=== PATIENT | male | born 1985 | race Caucasian/White ===

== ENCOUNTER 2018-06-03 10:52 | Observation (INO) | payer SELFPAY ==
--- NOTE | 2018-06-03 11:13 | C.PDOC ---
History Of Present Illness 32 year old male presents to the ED complaining of recurrent palpitations since 0900 today. Patient states he woke up with symptoms and describes palpitations as constant. He denies any associated chest pain or dizziness. He admits to drinking last night. He reports history of similar symptoms 2 - 3 years ago but states today is the first recurrence since prior time. RECUR PALPITATIONS SINCE 0900. PS AWOKE W SX. CONSTANT. DENIES ASSOC CP, DIZZY. PS WAS DRINKING LAST NIGHT. HO SIM PRIOR SX 2-3 YRS AGO BUT TODAY IS FIRST RECURRENCE SINCE. EXAM NAD LUNGS CTA B/L NO W/R/R CV IRREG REG TACHY REMAINDER NEG Time Seen by Provider: 06/03/18 11:05 History Per: Patient History/Exam Limitations: no limitations Onset/Duration Of Symptoms: Hrs (2 hrs ago ), Persistent Current Symptoms Are (Timing): Still Present Associated Symptoms: denies: Chest Pain, Dizziness Past Medical History Reviewed: Historical Data, Nursing Documentation, Vital Signs Vital Signs: Last Vital Signs Temp 98.7 F 06/03/18 11:09 Pulse 104 H 06/03/18 12:07 Resp 16 06/03/18 12:07 BP 158/103 H 06/03/18 12:07 Pulse Ox 98 06/03/18 12:19 - Medical History PMH: HTN Denies: Atrial Fibrillation Surgical History: No Surg Hx Family History: States: No Known Family Hx - Social History Hx Alcohol Use: No Hx Substance Use: No Review Of Systems Except As Marked, All Systems Reviewed And Found Negative. Cardiovascular: Positive for: Palpitations. Negative for: Chest Pain Neurological: Negative for: Dizziness Physical Exam - Physical Exam Appears: Non-toxic, No Acute Distress Skin: Normal Color, Warm, Dry Head: Atraumatic, Normacephalic Eye(s): bilateral: Normal Inspection Nose: Normal Oral Mucosa: Moist Neck: Supple Chest: Symmetrical Cardiovascular: Rhythm Irregular, Other (Tachycardic ) Respiratory: Normal Breath Sounds, No Rales, No Rhonchi, No Wheezing Neurological/Psych: Oriented x3, Normal Speech Gait: Steady ED Course And Treatment - Laboratory Results Result Diagrams: 06/03/18 11:31 06/03/18 11:31 ECG: Interpreted By Me ECG Rhythm: Atrial Fibrillation ECG Interpretation: Abnormal Rate From EC O2 Sat by Pulse Oximetry: 98 (RA) Pulse Ox Interpretation: Normal - Radiology CXR: Interpreted by Me CXR Interpretation: Yes: No Acute Disease Progress Note: EKG, Labs, and CXR ordered. Patient given Cardizem 20mg IVP and Fluids. EKG repeated, Atrial fibrillation, Rate 97. Progress - Re-Evaluation Re-evaluation Note: 06/03/18 11:15 SP CARDIZEM: AFIB @ 110 PT TOLERATED WELL 06/03/18 12:17 PERSIST AFIB, OCC >100 06/03/18 12:20 D/W DR [place] NORRIS, WILL ADMIT - Data Reviewed Data Reviewed: Lab, Diagnostic imaging, EKG, Old records - Critical Care Citical Care: Excluding Proc Time Critical Care Time: 90 minutes Disposition Counseled Patient/Family Regarding: Studies Performed, Diagnosis - Disposition Disposition: HOSPITALIZED Disposition Time: 12:22 Condition: STABLE - POA Present On Arrival: None - Clinical Impression Clinical Impression: Rapid atrial fibrillation - Scribe Statement The provider has reviewed the documentation as recorded by the Suleimanibkeara Howard All medical record entries made by the Suleimanibe were at my direction and personally dictated by me. I have reviewed the chart and agree that the record accurately reflects my personal performance of the history, physical exam, medical decision making, and the department course for this patient. I have also personally directed, reviewed, and agree with the discharge instructions and disposition. Decision To Admit - Pt Status Changed To: Hospital Disposition Of: Observation - InPatient: Physician Admission Certification: I certify that this patient requires 2 or more midnights of care for the following reason:: SEE NOTE - . Bed Request Type: Telemetry Admitting Physician: Jesus Norris Patient Diagnosis: Rapid atrial fibrillation
[2018-06-03] MEDS ORDERED: Sodium Chloride 0.9% 1,000 ML IV ONE (11:14)
[2018-06-03 11:44] LABS: BASO # 0.1 K/uL (0.0-0.2); BASO % 0.8 % (0.0-2.0); EOS # 0.1 K/uL (0.0-0.7); EOS % 1.2 % (0.0-4.0); HEMOGLOBIN 17.6 g/dL (12.0-18.0); LYMPH # 3.6 K/uL (1.0-4.3); LYMPH % 35.2 % (20.0-40.0); MEAN CELL VOLUME 88.2 fL (80.0-94.0); MEAN CORPUSCULAR HEMOGLOBIN 30.9 pg (27.0-31.0); MEAN CORPUSCULAR HGB CONC 35.1 g/dL (33.0-37.0); MEAN PLATELET VOLUME 8.4 fL (7.2-11.7); MONO # 0.7 K/uL (0.0-0.8); MONO % 7.3 % (0.0-10.0); NEUT # 5.7 K/uL (1.8-7.0); NEUT % 55.5 % (50.0-75.0); NRBC % 0.2 % (0.0-2.0); RBC 5.68 Mil/uL (4.40-5.90); RED CELL DISTRIBUTION WIDTH 14.1 % (11.5-14.5); WHITE BLOOD COUNT 10.2 K/uL (4.8-10.8)
[2018-06-03] MEDS ORDERED: Enoxaparin 40 mg Syringe SC STA (11:47)
[2018-06-03 11:49] LABS: ALB/GLOB RATIO 1.3 (1.0-2.1); ALBUMIN 4.8 g/dL (3.5-5.0); ALT/SGPT 35 U/L (21-72); AST/SGOT 37 U/L (17-59); BLOOD UREA NITROGEN 14 mg/dL (9-20); CALCIUM 8.7 mg/dl (8.6-10.4); GFR AFRICAN-AMERICAN > 60; GFR NON-AFRICAN AMERICAN > 60
[2018-06-03 11:52] LABS: PROTHROMBIN TIME 10.8 SECONDS (9.7-12.2)
--- NOTE | 2018-06-03 12:02 | RAD ---
Chest x-ray single frontal view History: Palpitations. Comparison: 10/31/2015 Findings: Mild venous congestion. Tortuous aorta. Heart size within normal limits. Impression: Mild venous congestion.
[2018-06-03] MEDS ORDERED: Enoxaparin 100 mg Syringe ONE (12:07)
--- NOTE | 2018-06-03 12:38 | CP.PCM.HP ---
<Lilly Tilley - Last Filed: 06/03/18 19:41> History of Present Illness - History of Present Illness History of Present Illness: History and Physical - Hospitalist Service CC: "I woke up with palpitations" HPI: Patient is a 32 year old male with past medical history of atrial fibrillation, HTN presented to the ED for palpitations. Patient states that when he woke up he was experiencing palpitations. Also reports feeling shortness of breath. Patient states that he was drinking "alot" last night. States that he had at least 5 glasses of whiskey which is more than he drinks normally. He states that he has had palpitations in the past, a few years ago and at that time he was diagnosed with Atrial Fibrillation. Patient follows with Dr Franz and is unsure when his last echocardiogram was. He states that he is taking two medications at home, but is unsure what the name of the medications are. He is not sure if he has ever been on a blood thinner. Reports that he generally is complaint with his medications but did not take it yesterday. Currently patient reports having a headache. Since arrival to the ED he had two episodes of NBNB vomiting. Patient is attributing the headache and vomiting to the alcohol. Denies dizziness, chest pain, visual changes, shortness of breath, abdominal pain, urinary symptoms, changes in bowel habits, numbness/tingling. 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) Medical History: Atrial fibrillation, HTN, Hx of abnormal thyroid function Surgical History: Denies Social History: Denies tobacco and drug use; drinks whisky on the weekends, last drink was yesterday; lives with his girlfriend and her two kids; works for [employer] Family History: Mother - HTN; Father - HTN; Maternal Grandmother - CVA in her 50s Present on Admission - Present on Admission Any Indicators Present on Admission: No Past Patient History - Past Medical History & Family History Past Medical History?: Yes - Past Social History Smoking Status: Never Smoked - CARDIAC Hx Atrial Fibrillation: No Hx Hypertension: Yes - MUSCULOSKELETAL/RHEUMATOLOGICAL Hx Falls: No - PSYCHIATRIC Hx Substance Use: No - SURGICAL HISTORY Hx Surgeries: No - ANESTHESIA Hx Anesthesia: No Hx Anesthesia Reactions: No Hx Malignant Hyperthermia: No Meds Allergies/Adverse Reactions: Allergies Allergy/AdvReac Type Severity Reaction Status Date / Time seafood Allergy Uncoded 10/31/15 20:54 Physical Exam - Constitutional Appears: Well, Non-toxic, No Acute Distress - Head Exam Head Exam: ATRAUMATIC, NORMAL INSPECTION, NORMOCEPHALIC - Eye Exam Eye Exam: EOMI, Normal appearance Pupil Exam: NORMAL ACCOMODATION - ENT Exam ENT Exam: Mucous Membranes Moist - Neck Exam Neck exam: Positive for: Full Rom - Respiratory Exam Respiratory Exam: Clear to Auscultation Bilateral, NORMAL BREATHING PATTERN. absent: Rales, Rhonchi, Wheezes - Cardiovascular Exam Cardiovascular Exam: Tachycardia, Irregular Rhythm, +S1, +S2 - GI/Abdominal Exam GI & Abdominal Exam: Normal Bowel Sounds, Soft. absent: Guarding, Rebound, Rigid, Tenderness - Rectal Exam Rectal Exam: Deferred - Extremities Exam Extremities exam: Positive for: normal capillary refill, normal inspection, pedal pulses present. Negative for: calf tenderness, pedal edema - Back Exam Back exam: NORMAL INSPECTION - Neurological Exam Neurological exam: Alert, CN II-XII Intact, Oriented x3 - Psychiatric Exam Psychiatric exam: Normal Affect, Normal Mood - Skin Skin Exam: Dry, Normal Color, Warm Results - Vital Signs Recent Vital Signs: Last Vital Signs Temp 98.7 F 06/03/18 11:09 Pulse 104 H 06/03/18 12:07 Resp 16 06/03/18 12:07 BP 158/103 H 06/03/18 12:07 Pulse Ox 98 06/03/18 12:23 - Labs Result Diagrams: 06/03/18 11:31 06/03/18 11:31 Labs: Laboratory Results - last 24 hr 06/03/18 06/03/18 06/03/18 11:31 11:31 11:31 WBC 10.2 RBC 5.68 Hgb 17.6 Hct 50.1 MCV 88.2 MCH 30.9 MCHC 35.1 RDW 14.1 Plt Count 259 MPV 8.4 Neut % (Auto) 55.5 Lymph % (Auto) 35.2 [place] % (Auto) 7.3 Eos % (Auto) 1.2 Baso % (Auto) 0.8 Neut # (Auto) 5.7 Lymph # (Auto) 3.6 [place] # (Auto) 0.7 Eos # (Auto) 0.1 Baso # (Auto) 0.1 PT 10.8 INR 1.0 APTT 36 H Sodium 145 Potassium 3.6 Chloride 105 Carbon Dioxide 26 Anion Gap 18 BUN 14 Creatinine 1.1 Est GFR ( Amer) > 60 Est GFR (Non-Af Amer) > 60 Random Glucose 118 H Calcium 8.7 Total Bilirubin 0.6 AST 37 ALT 35 Alkaline Phosphatase 105 Troponin I < 0.0120 Total Protein 8.6 H Albumin 4.8 Globulin 3.8 Albumin/Globulin Ratio 1.3 Assessment & Plan - Assessment and Plan (Free Text) Assessment: A/P: Patient is a 32 year old male with past medical history of atrial fibrillation, HTN who presented to the ED for palpitations and SOB that started this morning. Atrial Fibrillation with Rapid Ventricular Response -Stable, afebrile -Will monitor on telemetry x 24 hours -Patient received Cardizem 20mg IVP and Cardizem 30mg PO x 1 in the ED -Will continue Cardizem 30mg PO Q6H -Echocardiogram ordered, f/u official report -CHADsVASc score 1 for Hypertension -Will continue Lovenox 100mg SC Q12H -CXR showed mild venous congestion -EKG on arrival showed Afib with RVR 156bpm -Initial Troponin was negative, will trend CLYDE Q6H x 2 -F/U lipid panel, hga1c, TSH/Free T4, UTOX -Cardiology on consult, Dr Maya, help appreciated Hypertension -Per [facility] pharmacy, patient is on Benzapril 10mg and Norvasc 10mg daily at home -Patient recieved a 30 day supply of his medications and March and has not picked up his prescriptions since then -We will continue Cardizem 30mg Q6H PO at this time -Monitor Vitals Q4H Abnormal Thyroid Function -During previous admission, patient had abnormal thyroid studies -Patient denies any history of Thyroid disorder -Will check TSH and Free T4 Alcohol abuse/Possible alcohol withdrawal -Patient is an episodic drinker -Last drink was last night, reports drinking >5 glasses of whiskey -Alcohol level on admission was 21 -Ativan 1mg Q6H prn symptoms of alcohol withdrawal -Started on Banana bag -Zofran 4mg Q6H prn nausea, Tylenol 650mg Q6H prn headache -CIWA protocol, seizure precautions, aspiration precautions GI/DVT ppx: -No GI ppx indicated at this time -Lovenox 100mg SC Q12H Patient states that he would like to be full code and in the event he is unable to make decisions for himself, he would like his girlfriend to be his health care proxy. Her name is Lucy Morgan [phone]. Plan discussed with Dr Jesus Tilley DO PGY-2 <Jesus Chambers - Last Filed: 06/03/18 20:50> Results - Vital Signs Recent Vital Signs: Last Vital Signs Temp 98.5 F 06/03/18 15:07 Pulse 96 H 06/03/18 15:07 Resp 20 06/03/18 15:07 BP 157/102 H 06/03/18 15:07 Pulse Ox 98 06/03/18 16:22 - Labs Result Diagrams: 06/03/18 11:31 06/03/18 11:31 Labs: Laboratory Results - last 24 hr 06/03/18 06/03/18 06/03/18 11:31 11:31 11:31 WBC 10.2 RBC 5.68 Hgb 17.6 Hct 50.1 MCV 88.2 MCH 30.9 MCHC 35.1 RDW 14.1 Plt Count 259 MPV 8.4 Neut % (Auto) 55.5 Lymph % (Auto) 35.2 [place] % (Auto) 7.3 Eos % (Auto) 1.2 Baso % (Auto) 0.8 Neut # (Auto) 5.7 Lymph # (Auto) 3.6 [place] # (Auto) 0.7 Eos # (Auto) 0.1 Baso # (Auto) 0.1 PT 10.8 INR 1.0 APTT 36 H Sodium 145 Potassium 3.6 Chloride 105 Carbon Dioxide 26 Anion Gap 18 BUN 14 Creatinine 1.1 Est GFR ( Amer) > 60 Est GFR (Non-Af Amer) > 60 Random Glucose 118 H Hemoglobin A1c Calcium 8.7 Total Bilirubin 0.6 AST 37 ALT 35 Alkaline Phosphatase 105 Troponin I < 0.0120 Total Protein 8.6 H Albumin 4.8 Globulin 3.8 Albumin/Globulin Ratio 1.3 TSH 3rd Generation 7.65 H Urine Opiates Screen Urine Methadone Screen Ur Barbiturates Screen Ur Phencyclidine Scrn Ur Amphetamines Screen U Benzodiazepines Scrn U Oth Cocaine Metabols U Cannabinoids Screen Alcohol, Quantitative 21 H 06/03/18 06/03/18 12:30 12:47 WBC RBC Hgb Hct MCV MCH MCHC RDW Plt Count MPV Neut % (Auto) Lymph % (Auto) [place] % (Auto) Eos % (Auto) Baso % (Auto) Neut # (Auto) Lymph # (Auto) [place] # (Auto) Eos # (Auto) Baso # (Auto) PT INR APTT Sodium Potassium Chloride Carbon Dioxide Anion Gap BUN Creatinine Est GFR ( Amer) Est GFR (Non-Af Amer) Random Glucose Hemoglobin A1c 5.3 Calcium Total Bilirubin AST ALT Alkaline Phosphatase Troponin I Total Protein Albumin Globulin Albumin/Globulin Ratio TSH 3rd Generation Urine Opiates Screen Negative Urine Methadone Screen Negative Ur Barbiturates Screen Negative Ur Phencyclidine Scrn Negative Ur Amphetamines Screen Negative U Benzodiazepines Scrn Negative U Oth Cocaine Metabols Negative U Cannabinoids Screen Negative Alcohol, Quantitative Attending/Attestation - Attestation I have personally seen and examined this patient.: Yes I have fully participated in the care of the patient.: Yes I have reviewed all pertinent clinical information: Yes Notes (Text): 06/03/18 20:49 Patient was seen and examined shortly after resident. History, exam, assessment and plan were gone over with resident. Please note patient is also on Metoprolol 50 mg PO 2x/day Jesus Chambers D.O.
[2018-06-03] MEDS: Folic Acid 1 MG, Thiamine 100 MG, Multivitamin (MVI) 10 ML in Dextrose 5% In Water 1,00... IV SCH (14:23)
[2018-06-03 15:50] LABS: BARBITURATES, UR NEGATIVE (NEGATIVE); BENZODIAZEPINES, UR NEGATIVE (NEGATIVE); OPIATES, UR NEGATIVE (NEGATIVE); PHENCYCLIDINE, UR NEGATIVE (NEGATIVE)
[2018-06-03] MEDS: Enoxaparin 100 mg Syringe SC SCH (22:21)
--- NOTE | 2018-06-04 03:22 | CON ---
DATE: 06/03/2018 CARDIOLOGY CONSULTATION REASON FOR CONSULTATION: Paroxysmal atrial fibrillation. HISTORY OF PRESENT ILLNESS: The patient is a 32-year-old male who had EtOH abuse. He was diagnosed with atrial fibrillation some three years ago and was admitted in 10/2015. The patient was placed on Eliquis at that time and was followed in the clinic. The patient presented because of an episode of palpitation after drinking vodka and was found to be in rapid atrial fibrillation. The patient denies retrosternal chest pain. SOCIAL HISTORY: The patient is a nonsmoker. MEDICATIONS: Cardizem 30 mg every 6 hours, multivitamin including thiamin and vitamin C intravenous infusion, therapeutic subcutaneous Lovenox 100 mg twice a day, and Zofran 4 mg intravenously every 6 hours p.r.n. PAST MEDICAL HISTORY: Paroxysmal atrial fibrillation. PHYSICAL EXAMINATION: GENERAL: The patient is a young middle aged man who does not appear to be in acute distress. VITAL SIGNS: Blood pressure 158/103, heart rate 104, temperature 98.7. HEENT: Normocephalic. CHEST: Clear. HEART: S1 and S2 are regular. ABDOMEN: Soft. EXTREMITIES: No edema. No calf tenderness. LABORATORY DATA: Today's SMA-7 is within normal limit except glucose of 118. One set of troponin is negative. Liver enzymes are within normal limits. TSH level is elevated at 7.65. Today's CBC is entirely within normal limit. INR is 1, PTT is 36. Alcohol level on admission was 21. Urine drug screen is negative. Chest x-ray was unremarkable. ASSESSMENT: 1. Paroxysmal atrial fibrillation. Consider holiday heart. The patient did drink vodka and he has alcohol in his system. 2. Hypertension. RECOMMENDATIONS: Continue therapeutic subcutaneous Lovenox. Continue Cardizem 30 mg every 6 hours. Start Lopressor 60 mg twice a day. Obtain total T4 and free T4. Obtain an echocardiographic study. Gallo Maya MD
[2018-06-04 06:59] LABS: BASO # 0.1 K/uL (0.0-0.2); BASO % 0.7 % (0.0-2.0); EOS # 0.1 K/uL (0.0-0.7); EOS % 0.7 % (0.0-4.0); HEMOGLOBIN 16.9 g/dL (12.0-18.0); LYMPH # 3.9 K/uL (1.0-4.3); LYMPH % 30.1 % (20.0-40.0); MEAN CELL VOLUME 87.8 fL (80.0-94.0); MEAN CORPUSCULAR HEMOGLOBIN 30.2 pg (27.0-31.0); MEAN CORPUSCULAR HGB CONC 34.4 g/dL (33.0-37.0); MEAN PLATELET VOLUME 7.9 fL (7.2-11.7); MONO # 0.9 K/uL (0.0-0.8); MONO % 6.8 % (0.0-10.0); NEUT % 61.7 % (50.0-75.0); NRBC % 0.1 % (0.0-2.0); RBC 5.61 Mil/uL (4.40-5.90); RED CELL DISTRIBUTION WIDTH 14.2 % (11.5-14.5)
[2018-06-04 07:29] LABS: CK-MB 0.45 ng/mL (0.0-3.38)
[2018-06-04 07:39] LABS: ALB/GLOB RATIO 1.4 (1.0-2.1); ALBUMIN 4.1 g/dL (3.5-5.0); ALT/SGPT 31 U/L (21-72); AST/SGOT 32 U/L (17-59); BLOOD UREA NITROGEN 15 mg/dL (9-20); CALCIUM 8.6 mg/dl (8.6-10.4); GFR AFRICAN-AMERICAN > 60; GFR NON-AFRICAN AMERICAN > 60; HDL CHOLESTEROL 33 mg/dL (30-70); LDL CHOLESTEROL 96 mg/dL (0-129)
[2018-06-04] MEDS: Folic Acid 1 MG, Thiamine 100 MG, Multivitamin (MVI) 10 ML in Dextrose 5% In Water 1,00... IV SCH (10:12)
[2018-06-04] MEDS: Enoxaparin 100 mg Syringe SC SCH ×2 (10:12→21:12)
--- NOTE | 2018-06-04 14:29 | CP.PCM.PN ---
<Lorraine Verdin V - Last Filed: 06/04/18 15:27> Objective - Vital Signs/Intake and Output Vital Signs (last 24 hours): Temp Pulse Resp BP Pulse Ox 98.0 F 57 L 20 137/91 H 98 06/04/18 08:10 06/04/18 08:10 06/04/18 08:10 06/04/18 08:10 06/04/18 08:10 - Medications Medications: Current Medications Acetaminophen (Tylenol 325mg Tab) 650 mg PO Q6 PRN PRN Reason: Headache Last Admin: 06/03/18 13:40 Dose: 650 mg Diltiazem HCl (Cardizem) 30 mg PO Q8H [facility] Enoxaparin Sodium (Lovenox) 100 mg SC Q12 [facility] Last Admin: 06/04/18 10:12 Dose: 100 mg Folic Acid 1 mg/ Thiamine HCl 100 mg/ Multivitamins/Vitamin C 10 ml/ Dextrose 1 ,011.2 mls @ 100 mls/hr IV DAILY [facility] Last Admin: 06/04/18 10:12 Dose: 100 mls/hr Levothyroxine Sodium (Synthroid) 25 mcg PO DAILY@0630 [facility] Lorazepam (Ativan) 1 mg IVP Q6H PRN PRN Reason: Symptoms of alcohol withdrawl Metoprolol Tartrate (Lopressor) 50 mg PO BID [facility] Last Admin: 06/04/18 10:11 Dose: 50 mg Ondansetron HCl (Zofran Inj) 4 mg IVP Q6H PRN PRN Reason: Nausea/Vomiting Last Admin: 06/03/18 13:44 Dose: 4 mg - Labs Labs: 06/04/18 06:43 06/04/18 06:43 PT 10.8 SECONDS (9.7-12.2) 06/03/18 11:31 INR 1.0 06/03/18 11:31 APTT 36 SECONDS (21-34) H 06/03/18 11:31 Attending/Attestation - Attestation I have personally seen and examined this patient.: Yes I have fully participated in the care of the patient.: Yes I have reviewed all pertinent clinical information, including history, physical exam and plan: Yes Notes (Text): patient seen, examined, and case discussed with biomedical engineering director. Patient denies acute complaints.. Denies chest pain. Denies palpitations. Denies shortness of breath. Patient on telemetry noted to be bradycardic is asymptomatic. We'll lower her Cardizem from 30 mg by mouth 4 times a day 2 Cardizem 30 mg by mouth 3 times a day. Patient cardiac enzymes are negative 3. Echocardiogram has been completed awaiting official report. Per review of the note patient has not antihypertensives only has not been on any chemical anticoagulation. Pending report of echocardiogram to determine if patient will need chemical anticoagulant or needs an aspirin. We'll follow-up with cardiology for any further recommendations. Noted Patient history of clinic patient here at the hospital however his care has been with [facility]. Patient used to be on a low dose Synthroid for abnormal thyroid disorder but presently he is not. We will restart Synthroid micrograms once a day in the morning he will need to follow-up up with PMD for thyroid function tests and least 6-8 weeks. Patient noted was to have elevated triglycerides in light of morbid obesity he will need to engage in lifestyle modifications and exercise regimen to help reduce his risk overall. Assessment/Plan 1) Atrial Fibrillation with Rapid Ventricular Response Assessment/plan * Exacerbated by alcohol * Stable, afebrile * Cardiology on consult, Dr Maya, help appreciated * CHADsVASc score 1 for Hypertension * Patient received Cardizem 20mg IVP and Cardizem 30mg PO x 1 in the ED * We'll lower Cardizem 30mg PO Q 8 H. patient is noted to be bradycardic on telemetry heart rate in no 48-50 range. Patient is asymptomatic. * Lopressor 50mg PO BID * Pending-Echocardiogram ordered, f/u official report * Will continue Lovenox 100mg SC Q12H until official report of echocardiogram. * CXR showed mild venous congestion * EKG on arrival showed Afib with RVR 156bpm * Cardiac enzymes 3 negative * Lipid panel: Triglycerides elevated 355, check cholesterol 173, LDL 96, HDL 33 , hga1c: 5.3, drug screen negative, elevated alcohol admission Per [facility] pharmacy, patient is on Benzapril 10mg and Norvasc 10mg daily at home. Patient recieved a 30 day supply of his medications and March and has not picked up his prescriptions since then 2) Abnormal Thyroid Function Assessment/plan * During previous admission, patient had abnormal thyroid studies * Patient denies any history of Thyroid disorder * Elevated TSH, low free T4 * Patient used to come to the clinic associated with the hospital and use to be on Synthroid 25 g. Patient currently follows up at the [facility] but is not taking any medications. * Will restart Synthroid 25 g in the morning. 3) Alcohol abuse/Possible alcohol withdrawal Assessment/plan * Patient is an episodic drinker * Last drink was two night, reports drinking >5 glasses of whiskey * Alcohol level on admission was 21 * Ativan 1mg Q6H prn symptoms of alcohol withdrawal * Started on Banana bag will switch to thiamine 100 mg by mouth daily, multivitamin 1 tab by mouth daily, folic acid 1 mg by mouth daily * Zofran 4mg Q6H prn nausea, Tylenol 650mg Q6H prn headache * CIWA protocol, seizure precautions, aspiration precautions 4) Elevated triglycerides Low HDL Assessment/plan * Advocate for lifestyle modifications including alcohol cessation * Engage in exercise regimen in light of morbid obesity * [place]-3 fatty acid 1 tab PO BID 5) GI/DVT ppx Assessment/plan * No GI ppx indicated at this time * Lovenox 100mg SC Q12H <Astrid Mcneill Y - Last Filed: 06/04/18 21:00> Subjective - Date & Time of Evaluation Date of Evaluation: 06/04/18 Time of Evaluation: 12:08 - Subjective Subjective: PGY-1 Medicine Progress Note for hospitalist Dr. Verdin. Patient was seen and examined today at bedside in no acute distress. Nurse reports no overnight event. Patient denies any acute problems. Denies chest pain , shortness of breath, cough, wheeze, abdominal pain, nausea, vomiting, constipation, diarrhea. Objective - Vital Signs/Intake and Output Vital Signs (last 24 hours): Temp Pulse Resp BP Pulse Ox 98.0 F 57 L 20 137/91 H 98 06/04/18 08:10 06/04/18 08:10 06/04/18 08:10 06/04/18 08:10 06/04/18 08:10 - Medications Medications: Current Medications Acetaminophen (Tylenol 325mg Tab) 650 mg PO Q6 PRN PRN Reason: Headache Last Admin: 06/03/18 13:40 Dose: 650 mg Diltiazem HCl (Cardizem) 30 mg PO Q8H [facility] Enoxaparin Sodium (Lovenox) 100 mg SC Q12 [facility] Last Admin: 06/04/18 10:12 Dose: 100 mg Folic Acid 1 mg/ Thiamine HCl 100 mg/ Multivitamins/Vitamin C 10 ml/ Dextrose 1 ,011.2 mls @ 100 mls/hr IV DAILY [facility] Last Admin: 06/04/18 10:12 Dose: 100 mls/hr Levothyroxine Sodium (Synthroid) 25 mcg PO DAILY@0630 [facility] Lorazepam (Ativan) 1 mg IVP Q6H PRN PRN Reason: Symptoms of alcohol withdrawl Metoprolol Tartrate (Lopressor) 50 mg PO BID [facility] Last Admin: 06/04/18 10:11 Dose: 50 mg Ondansetron HCl (Zofran Inj) 4 mg IVP Q6H PRN PRN Reason: Nausea/Vomiting Last Admin: 06/03/18 13:44 Dose: 4 mg - Labs Labs: 06/04/18 06:43 06/04/18 06:43 PT 10.8 SECONDS (9.7-12.2) 06/03/18 11:31 INR 1.0 06/03/18 11:31 APTT 36 SECONDS (21-34) H 06/03/18 11:31 - Constitutional Appears: Well, Non-toxic, No Acute Distress - Head Exam Head Exam: ATRAUMATIC, NORMOCEPHALIC - Eye Exam Eye Exam: EOMI, Normal appearance. absent: Conjunctival injection, Nystagmus, Scleral icterus - ENT Exam ENT Exam: Mucous Membranes Moist, Normal Exam - Neck Exam Neck Exam: Full ROM, Normal Inspection. absent: Lymphadenopathy, Tenderness, Thyromegaly - Respiratory Exam Respiratory Exam: Clear to Ausculation Bilateral, NORMAL BREATHING PATTERN. absent: Accessory Muscle Use, Rales, Rhonchi, Wheezes - Cardiovascular Exam Cardiovascular Exam: REGULAR RHYTHM, +S1, +S2. absent: Murmur - GI/Abdominal Exam GI & Abdominal Exam: Soft, Normal Bowel Sounds. absent: Tenderness - Extremities Exam Extremities Exam: Full ROM, Normal Capillary Refill, Normal Inspection. absent : Joint Swelling, Pedal Edema Additional comments: IV in R arm, good flow - Neurological Exam Neurological Exam: Alert, Awake, CN II-XII Intact, Normal Gait, Oriented x3 - Psychiatric Exam Psychiatric exam: Normal Affect, Normal Mood - Skin Skin Exam: Dry, Intact, Normal Color, Warm Assessment and Plan - Assessment and Plan (Free Text) Plan: 1) Atrial Fibrillation with Rapid Ventricular Response Assessment/plan * Exacerbated by alcohol * Stable, afebrile * Lipid panel (06/04) Triglycerides elevated 355, check cholesterol 173, LDL 96, HDL 33, hga1c: 5.3, drug screen negative, elevated alcohol admission * CXR (06/03) showed mild venous congestion * Echo (06/03) done, pending report * Per [facility] pharmacy, patient is on Benzapril 10mg and Norvasc 10mg daily at home. Patient received a 30 day supply of his medications and March and has not picked up his prescriptions since then * Cardiology on consult, Dr Maya, help appreciated * Cont therapeutic sub Q Lovenox * Cont Cardizem 30mg PO q6h [Due to bradycardia,switched to TID dosing] * Start Lopressor 60mg po BID [NF. Started on 50mg po BID] * Obtain total T4 and free T4 * CHADsVASc score 1 for Hypertension * EKG on arrival showed Afib with RVR 156bpm * Patient received Cardizem 20mg IVP and Cardizem 30mg PO x 1 in the ED * Cardiac enzymes 3 negative * Will continue Lovenox 100mg SC Q12H until official report of echocardiogram. 2) Abnormal Thyroid Function Assessment/plan * During previous admission, patient had abnormal thyroid studies * Patient denies any history of Thyroid disorder * Elevated TSH, low free T4 * Patient used to come to the clinic associated with the hospital and use to be on Synthroid 25 g. Patient currently follows up at the [facility] but is not taking any medications. * Restart Synthroid 25 g in the morning. 3) Alcohol abuse/Possible alcohol withdrawal Assessment/plan * Patient is an episodic drinker * Last drink was two nights ago, reports drinking >5 glasses of whiskey * Alcohol level on admission was 21 * Ativan 1mg Q6H prn symptoms of alcohol withdrawal * Started on Banana bag will switch to thiamine 100 mg by mouth daily, multivitamin 1 tab by mouth daily, folic acid 1 mg by mouth daily * Zofran 4mg Q6H prn nausea, Tylenol 650mg Q6H prn headache * CIWA protocol, seizure precautions, aspiration precautions 4) Elevated triglycerides Low HDL Assessment/plan * Advocate for lifestyle modifications including alcohol cessation * Engage in exercise regimen in light of morbid obesity * [place]-3 fatty acid 1 tab PO BID 5) Prophylatic Measures Assessment/plan * No GI ppx indicated at this time * Lovenox 100mg SC Q12H * Heart healthy diet
[2018-06-04 14:42] LABS: CK-MB 0.35 ng/mL (0.0-3.38)
[2018-06-04] MEDS: Omega-3-Acid Ethyl Esters 1 GM Cap PO SCH (17:41)
--- NOTE | 2018-06-04 23:33 | PN ---
DATE: 06/04/2018 PHYSICAL EXAMINATION: VITAL SIGNS: Blood pressure 136/91, heart rate 54, temperature 97.9. LABORATORY DATA: Echocardiographic study was reviewed and it revealed normal left ventricular size and left ventricular systolic function. There was trace pulmonic insufficiency as well as trace tricuspid insufficiency. The left atrium was within normal limits. ASSESSMENT: 1. Paroxysmal atrial fibrillation, the patient is currently in sinus bradycardia. 2. Ethanol abuse. 3. Hypertension. 4. Hypothyroidism. RECOMMENDATIONS: Discontinue Cardizem. Continue subcutaneous Lovenox and obtain 12-lead EKG. In the meantime, continue Synthroid 25 mcg orally daily. Gallo Maya MD
[2018-06-05] MEDS ORDERED: Levothyroxine 25 MCG TAB PO SCH (06:30)
--- NOTE | 2018-06-05 07:29 | CP.PCM.PN ---
Objective - Vital Signs/Intake and Output Vital Signs (last 24 hours): Temp Pulse Resp BP Pulse Ox 98.6 F 49 L 20 144/98 H 98 06/04/18 23:20 06/05/18 02:38 06/04/18 23:20 06/04/18 23:20 06/05/18 02:38 - Medications Medications: Current Medications Acetaminophen (Tylenol 325mg Tab) 650 mg PO Q6 PRN PRN Reason: Headache Last Admin: 06/03/18 13:40 Dose: 650 mg Diltiazem HCl (Cardizem) 30 mg PO Q8H [facility] Last Admin: 06/04/18 23:38 Dose: Not Given Enoxaparin Sodium (Lovenox) 100 mg SC Q12 [facility] Last Admin: 06/04/18 21:12 Dose: 100 mg Folic Acid 1 mg/ Thiamine HCl 100 mg/ Multivitamins/Vitamin C 10 ml/ Dextrose 1 ,011.2 mls @ 100 mls/hr IV DAILY [facility] Last Admin: 06/04/18 10:12 Dose: 100 mls/hr Levothyroxine Sodium (Synthroid) 25 mcg PO DAILY@0630 [facility] Last Admin: 06/05/18 05:42 Dose: 25 mcg Lorazepam (Ativan) 1 mg IVP Q6H PRN PRN Reason: Symptoms of alcohol withdrawl Metoprolol Tartrate (Lopressor) 50 mg PO BID [facility] Last Admin: 06/04/18 17:41 Dose: 50 mg Multivitamins (Hexavitamin) 1 tab PO DAILY [facility] [id number] Ethyl Esters (Lovaza) 1 gm PO BID [facility] Last Admin: 06/04/18 17:41 Dose: 1 gm Ondansetron HCl (Zofran Inj) 4 mg IVP Q6H PRN PRN Reason: Nausea/Vomiting Last Admin: 06/03/18 13:44 Dose: 4 mg Thiamine HCl (Vitamin B1 Tab) 100 mg PO DAILY [facility] Last Admin: 06/04/18 19:47 Dose: 100 mg - Labs Labs: 06/04/18 06:43 06/04/18 06:43 PT 10.8 SECONDS (9.7-12.2) 06/03/18 11:31 INR 1.0 06/03/18 11:31 APTT 36 SECONDS (21-34) H 06/03/18 11:31
[2018-06-05 07:35] LABS: BASO % 0.4 % (0.0-2.0); EOS # 0.1 K/uL (0.0-0.7); EOS % 1.2 % (0.0-4.0); HEMOGLOBIN 15.7 g/dL (12.0-18.0); LYMPH # 3.3 K/uL (1.0-4.3); LYMPH % 33.7 % (20.0-40.0); MEAN CORPUSCULAR HEMOGLOBIN 30.8 pg (27.0-31.0); MEAN PLATELET VOLUME 8.2 fL (7.2-11.7); MONO # 0.7 K/uL (0.0-0.8); MONO % 7.2 % (0.0-10.0); NEUT # 5.6 K/uL (1.8-7.0); NEUT % 57.5 % (50.0-75.0); NRBC % 0.1 % (0.0-2.0); RBC 5.09 Mil/uL (4.40-5.90); RED CELL DISTRIBUTION WIDTH 13.9 % (11.5-14.5); WHITE BLOOD COUNT 9.8 K/uL (4.8-10.8)
[2018-06-05 09:01] LABS: ALB/GLOB RATIO 1.2 (1.0-2.1); ALBUMIN 3.7 g/dL (3.5-5.0); ALT/SGPT 30 U/L (21-72); AST/SGOT 37 U/L (17-59); BLOOD UREA NITROGEN 16 mg/dL (9-20); CALCIUM 8.6 mg/dl (8.6-10.4); GFR AFRICAN-AMERICAN > 60; GFR NON-AFRICAN AMERICAN > 60
[2018-06-05 09:14] VITALS: TEMP 97.9
[2018-06-05] MEDS ORDERED: Multiple Vitamins Tab PO SCH (10:00)
[2018-06-05] MEDS: Omega-3-Acid Ethyl Esters 1 GM Cap PO SCH (10:25)
[2018-06-05] MEDS: Enoxaparin 100 mg Syringe SC SCH (10:25)
[2018-06-05] MEDS: Folic Acid 1 MG, Thiamine 100 MG, Multivitamin (MVI) 10 ML in Dextrose 5% In Water 1,00... IV SCH (10:25)
--- NOTE | 2018-06-05 11:06 | CP.PCM.DIS ---
Provider - Provider Date of Admission: 06/03/18 12:23 Attending physician: Jesus Chambers MD Time Spent in preparation of Discharge (in minutes): 60 Diagnosis - Discharge Diagnosis (1) Paroxysmal atrial fibrillation Status: Acute Hospital Course - Lab Results Lab Results: Most Recent Lab Values WBC 9.8 K/uL (4.8-10.8) 06/05/18 07:00 RBC 5.09 Mil/uL (4.40-5.90) 06/05/18 07:00 Hgb 15.7 g/dL (12.0-18.0) 06/05/18 07:00 Hct 44.8 % (35.0-51.0) 06/05/18 07:00 MCV 88.0 fL (80.0-94.0) 06/05/18 07:00 MCH 30.8 pg (27.0-31.0) 06/05/18 07:00 MCHC 35.0 g/dL (33.0-37.0) 06/05/18 07:00 RDW 13.9 % (11.5-14.5) 06/05/18 07:00 Plt Count 219 K/uL (130-400) 06/05/18 07:00 MPV 8.2 fL (7.2-11.7) 06/05/18 07:00 Neut % (Auto) 57.5 % (50.0-75.0) 06/05/18 07:00 Lymph % (Auto) 33.7 % (20.0-40.0) 06/05/18 07:00 [place] % (Auto) 7.2 % (0.0-10.0) 06/05/18 07:00 Eos % (Auto) 1.2 % (0.0-4.0) 06/05/18 07:00 Baso % (Auto) 0.4 % (0.0-2.0) 06/05/18 07:00 Neut # (Auto) 5.6 K/uL (1.8-7.0) 06/05/18 07:00 Lymph # (Auto) 3.3 K/uL (1.0-4.3) 06/05/18 07:00 [place] # (Auto) 0.7 K/uL (0.0-0.8) 06/05/18 07:00 Eos # (Auto) 0.1 K/uL (0.0-0.7) 06/05/18 07:00 Baso # (Auto) 0.0 K/uL (0.0-0.2) 06/05/18 07:00 PT 10.8 SECONDS (9.7-12.2) 06/03/18 11:31 INR 1.0 06/03/18 11:31 APTT 36 SECONDS (21-34) H 06/03/18 11:31 Sodium 140 mmol/L (132-148) 06/05/18 07:00 Potassium 4.0 mmol/L (3.6-5.2) 06/05/18 07:00 Chloride 102 mmol/L (98-107) 06/05/18 07:00 Carbon Dioxide 29 mmol/L (22-30) 06/05/18 07:00 Anion Gap 13 (10-20) 06/05/18 07:00 BUN 16 mg/dL (9-20) 06/05/18 07:00 Creatinine 1.3 mg/dL (0.8-1.5) 06/05/18 07:00 Est GFR ( Amer) > 60 06/05/18 07:00 Est GFR (Non-Af Amer) > 60 06/05/18 07:00 Random Glucose 92 mg/dL (75-110) 06/05/18 07:00 Hemoglobin A1c 5.3 % (4.2-6.5) 06/03/18 12:47 Calcium 8.6 mg/dl (8.6-10.4) 06/05/18 07:00 Phosphorus 3.9 mg/dL (2.5-4.5) 06/04/18 06:43 Magnesium 2.0 mg/dL (1.6-2.3) 06/05/18 07:00 Total Bilirubin 0.6 mg/dL (0.2-1.3) 06/05/18 07:00 AST 37 U/L (17-59) 06/05/18 07:00 ALT 30 U/L (21-72) 06/05/18 07:00 Alkaline Phosphatase 63 U/L (38-126) 06/05/18 07:00 Total Creatine Kinase 125 U/L (55-170) 06/04/18 14:08 CK-MB (Mass) 0.35 ng/mL (0.0-3.38) 06/04/18 14:08 Troponin I < 0.0120 ng/mL (0.00-0.120) 06/04/18 14:08 Total Protein 6.8 g/dL (6.3-8.3) 06/05/18 07:00 Albumin 3.7 g/dL (3.5-5.0) 06/05/18 07:00 Globulin 3.0 gm/dL (2.2-3.9) 06/05/18 07:00 Albumin/Globulin Ratio 1.2 (1.0-2.1) 06/05/18 07:00 Triglycerides 355 mg/dL (0-149) H D 06/04/18 06:43 Cholesterol 173 mg/dL (0-199) 06/04/18 06:43 LDL Cholesterol Direct 96 mg/dL (0-129) 06/04/18 06:43 HDL Cholesterol 33 mg/dL (30-70) 06/04/18 06:43 Free T4 0.73 ng/dL (0.78-2.19) L 06/04/18 06:43 TSH 3rd Generation 5.50 mIU/L (0.46-4.68) H 06/04/18 06:43 Urine Opiates Screen Negative (NEGATIVE) 06/03/18 12:30 Urine Methadone Screen Negative (NEGATIVE) 06/03/18 12:30 Ur Barbiturates Screen Negative (NEGATIVE) 06/03/18 12:30 Ur Phencyclidine Scrn Negative (NEGATIVE) 06/03/18 12:30 Ur Amphetamines Screen Negative (NEGATIVE) 06/03/18 12:30 U Benzodiazepines Scrn Negative (NEGATIVE) 06/03/18 12:30 U Oth Cocaine Metabols Negative (NEGATIVE) 06/03/18 12:30 U Cannabinoids Screen Negative (NEGATIVE) 06/03/18 12:30 Alcohol, Quantitative 21 mg/dl (0-10) H 06/03/18 11:31 - Hospital Course Hospital Course: Patient is a 32 year old male with past medical history of atrial fibrillation, HTN presented to the ED for palpitations. Patient states that when he woke up he was experiencing palpitations. Also reports feeling shortness of breath. Patient states that he was drinking "alot" last night. States that he had at least 5 glasses of whiskey which is more than he drinks normally. He states that he has had palpitations in the past, a few years ago and at that time he was diagnosed with Atrial Fibrillation. Patient follows with Dr Franz and is unsure when his last echocardiogram was. He states that he is taking two medications at home, but is unsure what the name of the medications are. He is not sure if he has ever been on a blood thinner. Reports that he generally is complaint with his medications but did not take it yesterday. Currently patient reports having a headache. Since arrival to the ED he had two episodes of NBNB vomiting. Patient is attributing the headache and vomiting to the alcohol. Denies dizziness, chest pain, visual changes, shortness of breath, abdominal pain, urinary symptoms, changes in bowel habits, numbness/tingling. Serial ROMIs and EKGs were all negative for ACS. EKGs did support history of fibrillation. Chest X-ray reveals mild venous congestion. Cardiology was consulted for paroxysmal atrial fibrillation. Due to history of increased alcohol intake, "holiday heart" was suspected. Cardizem and Lopressor were initiated for rate control and hypertension. Lovenox was also administered due to risk of clotting/embolism. Echocardiography reveals normal left ventricular size and left ventricular systolic dysfunction. There was trace pulmonic insufficiency and trace tricuspid valve insufficiency. There were not clots found in the atrial auricles. Due to bradycardia Cardizem was discontinued; still taking Lopressor for rate control. From prior records and labs drawn this visit, patient was diagnosed with subclinical hypothyroidism. Synthroid was started. In regards to his alcohol abuse, he was educated on cessation as the lifestyle change would aid his elevated triglycerides as well as discourage other episodes of Afib and "holiday heart". A banana bag was administers, and then the patient was transitioned to Thiamine, Folate, and MVI by mouth. CIWA protocol, seizure precautions, and aspiration precautions were in place. The elevated triglycerides were addressed with [place], and can be transitioned to over the counter [place] 3 supplements such as fish oil, which the patient was counseled on. Primary diagnosis: alcohol induced atrial fibrillation Patient is cleared for discharge per Dr. Verdin. He is to NOT resume any home medications. He should take the newly prescribed medications as directed: Aspirin 81mg by mouth daily Lisinopril 5mg by mouth daily Levothyroxine 25mcg by mouth daily Patient should follow up with his primary doctor, Dr. Franz, within 1 week to go over his new hypertension regimen, as well as discuss his ongoing paroxysmal atrial fibrillation. He should abstain from alcohol and have his thyroid levels checked in 4-6 weeks. Plan was discussed with patient who understood and agreed. This is a summary of the hospital stay. Please refer to the EMR for more details. - Date & Time of H&P Date of H&P: 06/05/18 Time of H&P: 10:46 Discharge Exam - Head Exam Head Exam: ATRAUMATIC, NORMOCEPHALIC - Eye Exam Eye Exam: Normal appearance, PERRL Pupil Exam: NORMAL ACCOMODATION, PERRL - ENT Exam ENT Exam: Mucous Membranes Moist, Normal Exam, Normal Oropharynx - Respiratory Exam Respiratory Exam: NORMAL BREATHING PATTERN. absent: Rales, Rhonchi, Wheezes, Respiratory Distress, Stridor - Cardiovascular Exam Cardiovascular Exam: Bradycardia, +S1, +S2. absent: Gallop, JVD Additional comments: Most recent rate was normal 65 irregularly irregular - GI/Abdominal Exam GI & Abdominal Exam: Normal Bowel Sounds, Soft, Unremarkable. absent: Pulsatile Mass - Extremities Exam Extremities exam: normal capillary refill, normal inspection, pedal pulses present Additional comments: no calf tenderness, no tenderness on palpation, no edema IV on right to be taken out before discharge - Neurological Exam Neurological exam: Alert, Normal Gait - Psychiatric Exam Psychiatric exam: Normal Affect, Normal Mood - Skin Skin Exam: Dry, Intact, Normal Color, Warm Discharge Plan - Discharge Medications Prescriptions: Aspirin [Adult Aspirin] 81 mg PO DAILY #30 tablet. Levothyroxine [Synthroid] 25 mcg PO DAILY@0630 #30 tab Lisinopril [Zestril] 5 mg PO DAILY #30 tab - Follow Up Plan Condition: STABLE Disposition: HOME/ ROUTINE Instructions: Heart Healthy Diet, Aspirin, Levothyroxine, Lisinopril, Atrial Fibrillation (DC) Additional Instructions: Patient is cleared for discharge per Dr. Verdin. He is to NOT resume any home medications. He should take the newly prescribed medications as directed: Aspirin 81mg by mouth daily Lisinopril 5mg by mouth daily Levothyroxine 25mcg by mouth daily Patient should follow up with his primary doctor, Dr. Franz, within 1 week to go over his new hypertension regimen, as well as discuss his ongoing paroxysmal atrial fibrillation. He should abstain from alcohol and have his thyroid levels checked in 4-6 weeks. Plan was discussed with patient who understood and agreed.
[2018-06-05 16:12] VITALS: BP 151/84; PULSE 58; RESP 18; O2SAT 100
--- NOTE | 2018-06-05 17:44 | CARD ---
APPROVED REPORT Date of service: 06/04/2018 EKG Measurement Heart [id number] <Conclusion> Sinus bradycardia with marked sinus arrhythmia Otherwise normal ECG
--- NOTE | 2018-06-05 22:07 | PN ---
DATE: 06/05/2018 SUBJECTIVE: The patient is in mild sinus bradycardia. He denies any palpitation or chest pain. OBJECTIVE: VITAL SIGNS: Blood pressure 151/84, heart rate 58, temperature 97.9, respirations 18. HEENT: Normocephalic. CHEST: Clear. HEART: S1, S2, regular. EXTREMITIES: No edema. LABORATORY DATA: Today's SMA-7 is entirely within normal limits. Today's CBC is entirely within normal limits. Free T4 is below normal at 0.73. ASSESSMENT: 1. Paroxysmal atrial fibrillation. 2. Ethanol abuse. 3. Mild hypothyroidism. RECOMMENDATIONS: The case was discussed with the medical team, and the patient can be discharged home on oral anticoagulant regimen as well as Synthroid 25 mcg daily and thiamine 100 mg daily. No need to continue Lopressor in view of sinus bradycardia and hypothyroidism. The patient was strongly advised to abstain from future alcohol abuse. Gallo Maya MD
--- NOTE | 2018-06-06 05:24 | CARD ---
APPROVED REPORT Date of service: 06/04/2018 EXAM: Two-dimensional and M-mode echocardiogram with Doppler and color Doppler. Other Information Quality : GoodRhythm : INDICATION Atrial Fibrillation RISK FACTORS Hypertension 2D DIMENSIONS IVSd1.7 (0.7-1.1cm)LVDd4.6 (3.9-5.9cm) PWd1.4 (0.7-1.1cm)LVDs3.0 (2.5-4.0cm) FS (%) 33.6 %LVEF (%)62.4 (>50%) M-Mode DIMENSIONS RVDd2.22 (2.1-3.2cm)Left Atrium (MM)3.73 (2.5-4.0cm) IVSd1.60 (0.7-1.1cm)Aortic Root3.07 (2.2-3.7cm) LVDd4.65 (4.0-5.6cm)Aortic Cusp Exc.2.21 (1.5-2.0cm) PWd1.46 (0.7-1.1cm)FS (%) 24 % LVDs3.54 (2.0-3.8cm)LVEF (%)55 (>50%) Mitral Valve MV E Yojpztms72.4cm/sMV A Jefidxib91.3cm/sE/A ratio2.2 TDI E/Lateral E'0.0E/Medial E'0.0 Tricuspid Valve TR Peak [id number]/sTR Peak Gr.[id number] LEFT VENTRICLE The left ventricle is normal size. There is mild concentric left ventricular hypertrophy. Left ventricle systolic function is normal. The Ejection Fraction is 60-65%. There is normal LV segmental wall motion. The left ventricular diastolic function is normal. RIGHT VENTRICLE The right ventricle is normal size. There is normal right ventricular wall thickness. The right ventricular systolic function is normal. ATRIA The left atrium size is normal. The right atrium size is normal. The interatrial septum is intact with no evidence for an atrial septal defect. AORTIC VALVE The aortic valve is normal in structure. No aortic regurgitation is present. There is no aortic valvular stenosis. There is no aortic valvular vegetation. MITRAL VALVE The mitral valve is normal in structure. There is no evidence of mitral valve prolapse. There is no mitral valve stenosis. Mitral regurgitation is mild. TRICUSPID VALVE The tricuspid valve is normal in structure. There is mild tricuspid regurgitation. Right ventricular systolic pressure is estimated at 30-40 mmHg. There is mild pulmonary hypertension. PULMONIC VALVE The pulmonic valve is not well visualized. There is trace pulmonic valvular regurgitation. GREAT VESSELS The aortic root is normal in size. PERICARDIAL EFFUSION There is no significant pericardial effusion. <Conclusion> Left ventricle systolic function is normal. The Ejection Fraction is 60-65%. Hypertensive heart disease. No aortic regurgitation is present. Mitral regurgitation is mild. There is mild tricuspid regurgitation. There is mild pulmonary hypertension. There is trace pulmonic valvular regurgitation.
== END 2018-06-05 18:56 | disposition home or self-care (01) ==
LOC: C.ER 10:52 → C.9E 12:23 → C.6T 14:03
PROVIDERS: ADMIT Family Medicine; ATTEND Family Medicine
DX: I48.0 Paroxysmal atrial fibrillation (principal); E03.9 Hypothyroidism, unspecified; E66.01 Morbid (severe) obesity due to excess calories; E78.1 Pure hyperglyceridemia; F10.10 Alcohol abuse, uncomplicated; I10 Essential (primary) hypertension; Z79.82 Long term (current) use of aspirin; Z82.3 Family history of stroke; Z82.49 Family history of ischemic heart disease and other diseases of the circulatory system
CPT/HCPCS: 36415; 71045; 80053; 80061; 83036; 83735; 84100; 84439; 84443; 84484; 85025; 85610; 85730; 93005; 93306; 96361; 96365; 96366; 96372; 96375; 99285; C9113; G0378; G0480; J1650; J2405; J3411; J7030; J7070